=== PATIENT | male | born 1975 | race Caucasian/White ===

== ENCOUNTER 2019-06-07 16:35 | Emergency (ER) | payer BC, SELFPAY ==
[2019-06-07 16:50] VITALS: BP 135/79; PULSE 16; RESP 18; TEMP 36.7; O2SAT 98
--- NOTE | 2019-06-07 16:51 | ED.URI ---
HPI - URI/Sore Throat General Chief Complaint: Eye Problems Stated Complaint: dizzy, eye popped out. Source: patient History of Present Illness HPI Narrative: 44-year-old male presents with history of sinus problems . Said they started last night. He has been doing some power washing but was using full respirator mask. He was using some ammonia as well. She had irritation in his left eye and some sinus drainage. He denies any fever or chills. He is not sure if he got anything into his left eye. He does report that his right eye seems to bulge out like it was popping out . He says he pushed it back in. MD elicited complaint: rhinorrhea and nasal congestion Onset (ago): day(s) (1) Consistency: constant Severity: mild Description of mucous: watery Able to tolerate fluids by mouth: Yes Exacerbating factors: nothing Relieving factors: nothing Associated symptoms: denies other symptoms Treatments prior to arrival: none Related Data Allergies Allergy/AdvReac Type Severity Reaction Status Date / Time No Known Allergies Allergy Verified 06/07/19 16:54 Course Vital Signs Vital signs: Vital Signs Temperature 36.7 C 06/07/19 16:50 Pulse Rate 16 L 06/07/19 16:50 Respiratory Rate 18 06/07/19 16:50 Blood Pressure 135/79 06/07/19 16:50 Pulse Oximetry 98 06/07/19 16:50 Temperature 36.7 C 06/07/19 16:50 Pulse Rate 16 L 06/07/19 16:50 Respiratory Rate 18 06/07/19 17:32 Blood Pressure 135/79 06/07/19 16:50 Pulse Oximetry 98 06/07/19 16:50 Discharge Plan Discharge Clinical Impression: Bacterial conjunctivitis Patient Disposition: Home, Self-Care Condition: Stable Instructions: Antibiotic Form, Conjunctivitis (ED) Additional Instructions: Follow up with primary care physician if not better and to 3 days. Prescriptions: New tobramycin 0.3 % drops 2 drop EACH EYE TID 7 Days Qty: 5 RF: 0 Follow-up/Referrals: Jcarlos Pastor MD [Primary Care Provider] - Time of Disposition: 17:28 Discharge Date/Time: 06/07/19 17:32
--- NOTE | 2019-06-07 17:07 | PC.NURSE ---
ENT TRAY AT BEDSIDE WITH FLUROSCEIN, TETRECAINE, AND EYE WASH FOR EYE STAINING PERFORMED BY DR SLAUGHTER
[2019-06-07 17:32] VITALS: RESP 18
== END 2019-06-07 17:32 | disposition home or self-care (01) ==
PROVIDERS: Emergency Provider Emergency Medicine; PCP Family Medicine
DX: H10.89 Other conjunctivitis (principal)
CPT/HCPCS: 99283

== ENCOUNTER 2020-02-02 20:27 | Emergency (ER) | payer BC, SELFPAY ==
[2020-02-02 20:35] VITALS: BP 147/85; PULSE 71; RESP 14; TEMP 36.5; O2SAT 96
--- NOTE | 2020-02-02 21:09 | ED_ITS ---
HPI - Dental/Oral General Chief complaint: Dental/Oral Stated complaint: tooth pain Source: patient Mode of arrival: ambulatory Limitations: no limitations History of Present Illness HPI Narrative: Pain in tooth #32 (right max. wisdom tooth) x 2 days, getting worse. The pain comes and goes, very intense at times. He has had drainage since this AM which has an awful taste - he spits it out. Pain increases with biting his teeth together. His right anterior neck started hurting 6 hours ago. Related Data Allergies Allergy/AdvReac Type Severity Reaction Status Date / Time No Known Allergies Allergy Verified 06/07/19 16:54 Review of Systems Constitutional: Constitutional: Denies chills and Denies fever(s) ENT: Denies sore throat Comments: Able to fully open his mouth No ear pain PMFSH Past Medical History Medical History (Updated 02/04/20 @ 15:34 by Rupesh Martines MD) Patient denies significant medical history Social History Social History (Updated 02/04/20 @ 15:33 by Rupesh Martines MD) Smoking status: Current some day smoker Alcohol intake: current Substance use: never Exam Const: Orientation/consciousness: patient oriented x3 Other: Appears in pain. HENMT: Head: normal to inspection and other Face and sinus: normal facial exam Mouth: Yes Normal oral and palatal mucosa present Teeth and gingiva: caries (Tooth #32 is decayed, tender when percussed. Gingiva not swollen. ) Neck: Neck: normal visual inspection Neck images: 1. small, tender node on palpation. Course Vital Signs Vital signs: Vital Signs Temperature 36.5 C 02/02/20 20:35 Pulse Rate 71 02/02/20 20:35 Respiratory Rate 14 02/02/20 20:35 Blood Pressure 147/85 H 02/02/20 20:35 Pulse Oximetry 96 02/02/20 20:35 Temperature 36.5 C 02/02/20 20:35 Pulse Rate 71 02/02/20 20:35 Respiratory Rate 15 02/02/20 21:20 Blood Pressure 147/85 H 02/02/20 20:35 Pulse Oximetry 96 02/02/20 21:20 MDM - Dental/Oral MDM Narrative Medical decision making narrative: Pt is concerned about costs. No abscess identified but foul taste suggests one is draining. I will start treatment with amoxicillin. Pt. informed this may not be strong enough. If he's not seeing improvement in 2 days he should see his PCP. Differential Diagnosis Differential diagnosis: Likely gingival abscess, dental caries and dental absces s Discharge Plan Discharge Clinical Impression: Dental abscess Patient Disposition: Home, Self-Care Condition: Stable Instructions: Antibiotic Form, Dental Abscess (ED) Additional Instructions: See Dr. Salazar in 2 days if symptoms have not improved. Prescriptions: New amoxicillin 500 mg capsule 500 mg PO TID Qty: 21 RF: 0 Follow-up/Referrals: Jcarlos Pastor MD [Primary Care Provider] - Stand Alone Forms: Work/School Release IP Time of Disposition: 21:10 Discharge Date/Time: 02/02/20 21:30
[2020-02-02 21:20] VITALS: RESP 15; O2SAT 96
[2020-02-02] MEDS: AMOXICILLIN 500 MG CAPSULE PO (21:22)
== END 2020-02-02 21:30 | disposition home or self-care (01) ==
PROVIDERS: Emergency Provider Family Medicine; PCP Family Medicine
DX: K04.7 Periapical abscess without sinus (principal)
CPT/HCPCS: 99283; A9270

== ENCOUNTER 2020-11-02 15:42 | Outpatient (CLI) | payer OTHER, SELFPAY ==
--- NOTE | ~2020-11-02 | XR_ITS ---
EXAMINATION: XR lumbar spine 2-3V EXAM DATE: 11/02/2020 16:07 INDICATION: Low back pain, L>R post pulling injury . TECHNIQUE: Lumber spine frontal, lateral, lateral L5-S1 projections for interpretation. There is no prior study for comparison. FINDINGS: There is moderate loss of the all 4-5 disc height, mild loss at L5-S1. Lumbar vertebral justino dy heights are maintained. There is mild to moderate lower lumbar facet arthropathy. Sacrum, sacroili ac joints, sacral arcuate lines are intact. Paraspinal soft tissue is unremarkable. IMPRESSION: 1. L4-5 moderate disc disease. 2. Mild to moderate lower lumbar facet arthropathy. Reviewed, dictated and finalized at location A.
== END 2020-11-02 15:43 | disposition home or self-care (01) ==
LOC: CHSLAB 15:46
PROVIDERS: PCP Family Medicine; Visit Provider Family Medicine
DX: M54.5 Low back pain (principal)
CPT/HCPCS: 72100

== ENCOUNTER 2021-06-04 15:13 | Emergency (ER) | payer BC, SELFPAY ==
[2021-06-04 15:20] VITALS: BP 154/95; PULSE 91; RESP 18; TEMP 36.6; O2SAT 97
[2021-06-04] MEDS: HYDROcodone/acetaminophen (*CRX) 5-325 MG TABLET 1 TAB PO (16:56)
--- NOTE | 2021-06-04 17:09 | ED.DENTAL ---
HPI - Dental/Oral General Chief complaint: Dental/Oral Stated complaint: bleeding from mouth Time Seen by Provider: 06/04/21 17:09 Source: patient Mode of arrival: ambulatory Limitations: no limitations History of Present Illness HPI Narrative: 46-year-old man comes in today complaining of bleeding from his upper dental extraction sites. This morning he had all of his upper teeth pulled. he took Tylenol with codeine. He ate something for lunch and gargled with salt water and after that he began to have bleeding. after arrival to the emergency department, saline moistened gauze was placed over the wounds and he has not had any more bleeding. Complaint: tooth injury Onset (ago): hour(s) (4) Duration: constant Severity: moderate Relieving factors: nothing Exacerbating factors: chewing Context: trauma (mechanism) ( Dentistry) Treatment prior to arrival: oral analgesic Related Data Home Medications Medication Instructions Recorded Confirmed Tylenol-Codeine #3 300 mg PO PRN PRN 06/04/21 06/04/21 amoxicillin 500 mg PO Q6-8H 06/04/21 06/04/21 Allergies Allergy/AdvReac Type Severity Reaction Status Date / Time No Known Allergies Allergy Verified 06/04/21 15:26 Review of Systems Review of Systems: All systems reviewed & are unremarkable except as noted in HPI and below Constitutional: Constitutional: Denies chills and Denies fever(s) ENT: Reports as per HPI, Denies nasal congestion and Denies sore throat Cardiovascular: Cardiovascular: Denies chest pain and Denies radiating jaw, neck or arm pain Respiratory: Respiratory: Denies cough and Denies dyspnea Gastrointestinal: Gastrointestinal: Denies nausea and Denies vomiting Integumentary/Breasts: Skin/Breast: Denies pruritus, Denies erythema and Denies rash Neurologic: Denies vertigo, Denies dizziness and Denies syncope Hematologic/Lymphatic: Hematologic/Lymphatic: Denies easy bleeding and Denies easy bruising Comments: Denies aspirin and blood thinner use Allergic/Immunologic: Allergic/Immunologic: Denies lip swelling, Denies throat swelling and Denies tongue swelling PMFSH Past Medical History Medical History (Updated 06/04/21 @ 17:18 by Rupesh Garcia MD) Pain, dental Patient denies significant medical history Social History Social History Smoking status: Current some day smoker Alcohol intake: current Alcohol use details: Occasional Substance use: never Exam Const: General: healthy appearing and alert Orientation/consciousness: patient oriented x3 Limitations: no limitations Other: mild acute distress. HENMT: Head: normal to inspection Mouth: Yes moist mucous membranes Other: Normal oropharynx and tongue. Upper dental extraction sites show extent red clots with observable sutures intact. no active bleeding. Eyes: Conjunctivae: conjunctivae normal Pupils: Equal, round and reactive pupils present EOM: EOMs intact bilaterally Resp: Effort & Inspection: normal respiratory effort Auscultation: clear to auscultation bilaterally, no rales, no rhonchi and no wheezes Cardio: Rate: regular rate Rhythm: regular rhythm Skin: General skin exam: normal color, no jaundice and no pallor Rashes: no rashes Neuro: General: patient oriented x3, moves all extremities, no focal motor deficits and CN's II-XI intact bilaterally Speech: normal speech Gait exam (Neuro): Normal gait present Extrem: General: normal to inspection and no clubbing, cyanosis or edema Psych: Appearance: grossly normal and well kempt Mental Status: mental status grossly normal Affect: normal affect Attitude: cooperative Thought content: Yes Normal thought content present Course Vital Signs Vital signs: Vital Signs Temperature 36.6 C 06/04/21 15:20 Pulse Rate 91 06/04/21 15:20 Respiratory Rate 18 06/04/21 15:20 Blood Pressure 154/95 H 06/04/21 15:20 Pulse Oximetry 97 06/04/21 15:20
[2021-06-04 17:55] VITALS: BP 136/85; PULSE 93; RESP 18; O2SAT 100
--- NOTE | 2021-06-04 18:00 | PC.NURSE ---
1715 RN used saline soaked gauze and had pt bit down on them. Pt also provided ice packs to both sides of the jaw.
== END 2021-06-04 17:55 | disposition home or self-care (01) ==
PROVIDERS: Emergency Provider Emergency Medicine; PCP Family Medicine
DX: L76.22 Postprocedural hemorrhage of skin and subcutaneous tissue following other procedure (principal)
CPT/HCPCS: 99283; A9270

== ENCOUNTER 2021-09-04 13:04 | Emergency (ER) | payer BC, SELFPAY ==
[2021-09-04 13:28] VITALS: BP 144/76; PULSE 86; RESP 20; TEMP 36.2; O2SAT 97
--- NOTE | 2021-09-04 13:32 | ED.DENTAL ---
HPI - Dental/Oral General Chief complaint: Dental/Oral Stated complaint: teeth pulled 3 months ago, swelling/pain in mouth Source: patient Mode of arrival: ambulatory Limitations: no limitations History of Present Illness HPI Narrative: this is a 46-year-old gentleman that had his teeth pulled approximately 3 months ago and has been wearing good fitting dentures but over last week or so has had some swelling and small abscess that formed in his right upper 3rd and 4th dry socket area with no drainage it is tender to touch. Currently no fever chills no shortness of breath no nausea vomiting. Teeth map: 1. patient a dentulous, with some small abscess located at the 4th and 5th right upper area with currently no drainage it is tender, Onset (ago): day(s) Duration: constant Severity: moderate Related Data Home Medications Medication Instructions Recorded Confirmed Tylenol-Codeine #3 300 mg PO PRN PRN 06/04/21 06/04/21 amoxicillin 500 mg PO Q6-8H 06/04/21 06/04/21 Allergies Allergy/AdvReac Type Severity Reaction Status Date / Time No Known Allergies Allergy Verified 06/04/21 15:26 Review of Systems Review of Systems: All systems reviewed & are unremarkable except as noted in HPI and below PMFSH Past Medical History Medical History Pain, dental Patient denies significant medical history Social History Social History Smoking status: Current some day smoker Alcohol intake: current Alcohol use details: Occasional Substance use: never Exam Const: General: no acute distress and alert Orientation/consciousness: patient oriented x3 HENMT: Head: normal to inspection Eyes: Conjunctivae: conjunctivae normal Pupils: Equal, round and reactive pupils present Other: Tender right upper 4th and 5th dry socket area with abscess formation. Neck: Neck: normal visual inspection and no lymphadenopathy Chest: Chest palpation & inspection: normal inspection of the chest Resp: Effort & Inspection: normal respiratory effort Auscultation: clear to auscultation bilaterally Cardio: Rate: regular rate Rhythm: regular rhythm GI: GI Palp: Yes Soft to palpation : Testes: Testes normal Urinary Catheter: Urinary Catheter: patent and draining Back/Spine/Pelvis: Back: no CVA tenderness Skin: General skin exam: normal color Rashes: no rashes Psych: Mental Status: mental status grossly normal Course Course Emergency Course: Sent antibiotics to patient's local pharmacy, otherwise patient is comfortable with no fever chills no drainage from the abscess site. Critical Care Time Critical Care Time Critical Care Time: No Discharge Plan Discharge Clinical Impression: Dental abscess Patient Disposition: Home, Self-Care Condition: Stable Instructions: Antibiotic Form, Dental Abscess (ED) Additional Instructions: Take medicine as prescribed and follow-up with dentist if symptoms persist or worsen. Prescriptions: New amoxicillin 500 mg tablet 500 mg PO TID Qty: 30 RF: 0 Orabase (benzocaine) 20 % paste 1 applic mucous membrane QID PRN (Reason: mouth irritation) Qty: 571.2 RF: 0 No Action Tylenol-Codeine #3 300 mg PO PRN PRN (Reason: Pain) RF: 0 amoxicillin 500 mg PO Q6-8H RF: 0 hydrocodone-acetaminophen 5-325 mg tablet 1 tablet PO Q6H PRN (Reason: pain) Qty: 12 RF: 0 Follow-up/Referrals: Jcarlos Pastor MD [Primary Care Provider] - Stand Alone Forms: Work/School Release IP Time of Disposition: 13:36
[2021-09-04 13:39] VITALS: PULSE 84; RESP 20; O2SAT 98
== END 2021-09-04 13:45 | disposition home or self-care (01) ==
PROVIDERS: Emergency Provider Emergency Medicine; PCP Family Medicine
DX: K04.7 Periapical abscess without sinus (principal)
CPT/HCPCS: 99283

== ENCOUNTER 2021-12-04 11:13 | Emergency (ER) | payer BC, SELFPAY ==
[2021-12-04 11:20] VITALS: BP 147/87; PULSE 90; RESP 18; TEMP 36.6; O2SAT 97
--- NOTE | 2021-12-04 11:35 | ED.GENADULT ---
HPI - General Adult General Chief complaint: Upper Respiratory Infection Stated complaint: cough, B/L rib pain when coughing, head pressure Source: patient Mode of arrival: ambulatory Limitations: no limitations History of Present Illness HPI narrative: Patient with cough and congestion with no fever chills cough is nonproductive does have some sinus pressure and drainage with no nausea vomiting no shortness of breath no chest pain. Onset (ago): day(s) Related Data Allergies Allergy/AdvReac Type Severity Reaction Status Date / Time Penicillins Allergy Unknown Verified 12/04/21 11:28 Review of Systems Review of Systems: All systems reviewed & are unremarkable except as noted in HPI and below PMFSH Past Medical History Medical History Pain, dental Patient denies significant medical history Social History Social History Smoking status: Current some day smoker Alcohol intake: current Alcohol use details: Occasional Substance use: never Exam Const: General: healthy appearing Nutritional Appearance: well nourished Limitations: no limitations HENMT: Head: normal to inspection Other: Frontal sinus tenderness to palpation Eyes: Conjunctivae: conjunctivae normal EOM: EOMs intact bilaterally Neck: Neck: normal visual inspection, no lymphadenopathy and no meningeal signs Chest: Chest palpation & inspection: normal inspection of the chest Resp: Effort & Inspection: normal respiratory effort Auscultation: clear to auscultation bilaterally Cardio: Rate: regular rate Rhythm: regular rhythm GI: GI Palp: Yes Soft to palpation Skin: General skin exam: normal color Rashes: no rashes Wounds: no wounds Neuro: General: patient oriented x3, moves all extremities and no meningeal signs Extrem: General: normal to inspection Psych: Mental Status: mental status grossly normal Course Course Emergency Course: patient assessed and will send medication to his pharmacy. Critical Care Time Critical Care Time Critical Care Time: No Discharge Plan Discharge Clinical Impression: Sinusitis Qualifiers: Sinusitis location: frontal Chronicity: acute Recurrence: non-recurrent Qualified Code(s): J01.10 - Acute frontal sinusitis, unspecified Patient Disposition: Home, Self-Care Condition: Stable Instructions: Antibiotic Form, Sinusitis (ED) Additional Instructions: Take medicine as prescribed and follow-up with primary care physician if symptoms persist or worsen. Prescriptions: New azithromycin [Zithromax Z-Rod] 250 mg tablet See Rx Instructions .ROUTE .COMPLEX Qty: 6 0RF Rx Instructions: For 250 mg dose pack: take 500 mg today (day 1), then 250 mg for 4 days (days 2-5) benzonatate 200 mg capsule 200 mg PO TID Qty: 20 0RF Follow-up/Referrals: Jcarlso Pastor MD [Primary Care Provider] - Time of Disposition: 11:38
== END 2021-12-04 11:39 | disposition home or self-care (01) ==
PROVIDERS: Emergency Provider Emergency Medicine; PCP Family Medicine
DX: J01.10 Acute frontal sinusitis, unspecified (principal)
CPT/HCPCS: 99283